=== PATIENT | male | born 1970 | race Caucasian/White ===

== ENCOUNTER → 2023-05-22 | Outpatient (CLI) | payer BC, OTHER ==
[~2023-05-22] MED LIST: CYCL10 PO; LIDO700A20 TOP; Norco 5-325 Ta1 EACH PO
== END ==
LOC: LAB 13:54 → LAB SHORT 13:54
DX: C44.619 Basal cell carcinoma of skin of left upper limb, including shoulder (principal); L57.0 Actinic keratosis
CPT/HCPCS: 88305